=== PATIENT | female | born 1980 | race Two or more races ===

== ENCOUNTER 2017-01-26 21:16 | Emergency (ER) | payer OTHER ==
[2017-01-26 22:45] VITALS: BP 110/88
== END 2017-01-26 22:45 | disposition home or self-care (01) ==
LOC: ED 21:16
DX: T63.441A Toxic effect of venom of bees, accidental (unintentional), initial encounter (principal); L03.114 Cellulitis of left upper limb; Y92.89 Other specified places as the place of occurrence of the external cause